=== PATIENT | female | born 1945 | race Caucasian/White ===

== ENCOUNTER 2022-03-01 06:43 | Day surgery (SDC) | payer MEDICARE, OTHER ==
[2022-03-01] MEDS ORDERED: Propofol 200 MG/20 ML SDV IV ONE (06:44)
[2022-03-01] MEDS ORDERED: Sodium Chloride 0.9% 10 ML Syringe FLUSH PRN (06:45)
[2022-03-01] MEDS: Lactated Ringers 1,000 ML IV SCH (07:45)
[2022-03-01 08:46] VITALS: BP 135/60; PULSE 71
[2022-03-01] MEDS: hydrALAZINE 20 MG/ML SDV IVPUSH ONE (09:09)
== END 2022-03-01 09:38 | disposition home or self-care (01) ==
LOC: FB.SDS 06:43
PROVIDERS: ATTEND Surgery
DX: Z12.11 Encounter for screening for malignant neoplasm of colon (principal); K57.30 Diverticulosis of large intestine without perforation or abscess without bleeding; I48.91 Unspecified atrial fibrillation; I87.2 Venous insufficiency (chronic) (peripheral); D68.8 Other specified coagulation defects; K21.9 Gastro-esophageal reflux disease without esophagitis; I10 Essential (primary) hypertension; E78.00 Pure hypercholesterolemia, unspecified; Z86.010 Personal history of colon polyps; Z79.899 Other long term (current) drug therapy; Z88.8 Allergy status to other drugs, medicaments and biological substances; Z98.890 Other specified postprocedural states
CPT/HCPCS: 00811-QZ; J0360; J2704; J7120

== ENCOUNTER 2025-05-11 11:26 | Emergency (ER) | payer MEDICARE, OTHER ==
[2025-05-11] MEDS ORDERED: Sodium Chloride 0.9% 10 ML Syringe FLUSH PRN (11:44)
[2025-05-11 12:12] LABS: MEAN PLATELET VOLUME 9.1 fL (7.1-12.4); PLATELET COUNT,PLT 210 x10(3)uL (151-488); RED BLOOD CELL COUNT 2.83 x10(6)uL (3.60-5.20); RED CELL DISTRIBUTION WIDTH 15.1 % (12.3-16.5); WHITE BLOOD CELL COUNT,WBC 18.7 x10-3/uL (3.0-10.3)
[2025-05-11 12:22] LABS: D-DIMER QUANTITATIVE 0.93 mg/LFEU (0.0-0.59)
[2025-05-11 12:25] LABS: INR 1.45 (1.00-1.24)
[2025-05-11 12:27] LABS: BLOOD UREA NITROGEN,BUN 24 mg/dL (7-18); CARBON DIOXIDE,CO2 18 mmol/L (21-32); CHLORIDE,CL 98 mmol/L (100-110); CREATININE 1.8 mg/dL (0.55-1.02); ESTIMATED GFR 28 mL/min (>60); GLUCOSE RANDOM 282 mg/dL (80-116); LYMPHOCYTES PERCENT MAN 9 % (13-37); MONOCYTES PERCENT MAN 6 % (4-12); POTASSIUM,K 4.5 mmol/L (3.5-5.3); SEG NEUTROPHILS PERCENT MAN 85 % (46-82); SODIUM,NA 132 mmol/L (135-145)
[2025-05-11 12:33] LABS: A/G RATIO 1.0; ALANINE AMINOTRANSFERASE,ALT 28 U/L (12-36); ASPARTATE AMNIOTRANSFERASE,AST 21 IU/L (5-25); BILIRUBIN TOTAL 0.6 mg/dL (0.1-1.3); PROTEIN TOTAL,TP 5.9 g/dL (6.0-8.0)
[2025-05-11 14:17] VITALS: PULSE 88
[2025-05-11 15:54] LABS: LACTIC ACID 10.0 mmol/L (0.4-2.0)
[2025-05-11 16:36] LABS: GLUCOSE,URINE 100 mg/dL (NORMAL); OCCULT BLOOD,URINE LARGE (NEGATIVE)
[2025-05-11 16:38] LABS: APPEARANCE,URINE CLOUDY (CLEAR)
[2025-05-11 18:42] VITALS: BP 100/44
== END 2025-05-11 16:40 | disposition other institution (70) ==
LOC: FB.ED 11:26
DX: R55 Syncope and collapse (principal); R33.9 Retention of urine, unspecified; D64.9 Anemia, unspecified; I25.10 Atherosclerotic heart disease of native coronary artery without angina pectoris; I48.91 Unspecified atrial fibrillation; E78.00 Pure hypercholesterolemia, unspecified; I10 Essential (primary) hypertension; K21.9 Gastro-esophageal reflux disease without esophagitis; Z86.73 Personal history of transient ischemic attack (TIA), and cerebral infarction without residual deficits; Z79.899 Other long term (current) drug therapy; Z79.01 Long term (current) use of anticoagulants
CPT/HCPCS: 36415; 71045; 80053; 81001; 83605; 83880; 84484; 85025; 85379; 85610; 93005; 96361; 96374; 99285; J0696; J7030